=== PATIENT | female | born 1985 | race Hispanic/Latino ===

== ENCOUNTER 2020-04-20 08:56 | Emergency (ER) | payer OTHER ==
[~2020-04-20] VITALS: Ht 157.5 cm; Wt 60.7 kg
[2020-04-20] MEDS ORDERED: bcp (09:03)
[2020-04-20] MEDS ORDERED: [UNRECOGNIZED DRUG - OTHER] (09:03)
[2020-04-20] MEDS ORDERED: LIDOCAINE 5% (LIDODERM) PATCH TD ONE (09:30)
[2020-04-20] MEDS ORDERED: KETOROLAC 60MG 2ML VIAL IM ONE (09:30)
[2020-04-20] MEDS ORDERED: CYCLOBENZAPRINE 10MG TABLET PO ONE (09:30)
[2020-04-20] MEDS ORDERED: LIDO5DIS41 TOP (10:34)
[2020-04-20] MEDS ORDERED: CYCL-707 PO (10:34)
[2020-04-20 11:07] VITALS: BP 110/68
[2020-04-20] MEDS ORDERED: **NOTE PATIENT COMMENT** MISC XX SCH (21:00)
== END 2020-04-20 11:09 | disposition home or self-care (01) ==
LOC: M ED 08:56
DX: S16.1XXA Strain of muscle, fascia and tendon at neck level, initial encounter (principal); X58.XXXA Exposure to other specified factors, initial encounter; Y92.89 Other specified places as the place of occurrence of the external cause
CPT/HCPCS: 96372; 99283; J1885